=== PATIENT | female | born 1960 | race African-American/Black ===

== ENCOUNTER 2020-08-07 06:06 | Day surgery (SDC) | payer BC ==
[2020-08-03 17:39] VITALS: BMI 29.8
[2020-08-07] MEDS ORDERED: POVIDONE-IODINE 5% OPHTHALMIC PREP 30 ML SOLUTION ONE (07:21)
[2020-08-07] MEDS ORDERED: LIDOCAINE 1%/EPI 1:100000 (20 ML MULTI DOSE VIAL) ONE (07:21)
[2020-08-07] MEDS ORDERED: TETRACAINE 0.5% OPHTH SOLN 2 ML BOTTLE ONE (07:21)
[2020-08-07] MEDS ORDERED: ERYTHROMYCIN 0.5% OPHTHALMIC OINTMENT 3.5 GM TUBE ONE ×2 (07:21→08:09)
[2020-08-07] MEDS ORDERED: MIDAZOLAM HCL 2 MG/2 ML SINGLE DOSE VIAL ONE (07:25)
[2020-08-07] MEDS ORDERED: PROPOFOL 20 ML ONE ×2 (07:25→07:49)
[2020-08-07] MEDS ORDERED: ceFAZolin SODIUM 1 GM VIAL ONE (07:53)
[2020-08-07] MEDS ORDERED: DEXAMETHASONE SOD PHOSPHATE 4 MG/1 ML VIAL ONE (07:57)
[2020-08-07] MEDS ORDERED: ONDANSETRON 4 MG/2 ML VIAL ONE (07:57)
[2020-08-07] MEDS ORDERED: ONDANSETRON 4 MG/2 ML VIAL IVPUSH PRN (08:23)
[2020-08-07] MEDS ORDERED: oxyCODONE HCL 5 MG TABLET PO PRN (08:23)
[2020-08-07] MEDS ORDERED: LACTATED RINGERS SOLUTION 1,000 ML IV SCH (08:30)
[2020-08-07] MEDS ORDERED: oxyCODONE HCL 5 MG TABLET ONE (09:09)
[2020-08-07 09:36] VITALS: TEMP 97.7
[2020-08-07 09:54] VITALS: BP 138/78; PULSE 61
== END 2020-08-07 10:10 | disposition home or self-care (01) ==
LOC: FASU 06:06
PROVIDERS: ATTEND Ophthalmology
PROC: 08BTXZX Excision of Left Conjunctiva, External Approach, Diagnostic (ICD-10-PCS; principal; 2020-08-07 07:57)
DX: H11.89 Other specified disorders of conjunctiva (principal)
CPT/HCPCS: 88304-TC; 94760